=== PATIENT | female | born 1995 | race Caucasian/White ===

== ENCOUNTER 2019-06-10 10:26 | Emergency (ER) | payer OTHER ==
[~2019-06-10] VITALS: Ht 175.3 cm; Wt 65.8 kg
--- NOTE | 2019-06-10 10:30 | NUR ---
BIB [facility] FOR OTB. PATIENT C/O DIFFICULTY SWALLOWING AND SOB x TODAY. TO ER BED 11, HOOKED TO MONITOR, AWAITING MD MATIAS
--- NOTE | 2019-06-10 10:35 | NUR ---
DR JONES AT BEDSIDE FOR EVAL
--- NOTE | 2019-06-10 11:05 | NUR ---
URINE SAMPLE SENT TO LAB
--- NOTE | 2019-06-10 12:40 | NUR ---
Patient discharged in custody of [employer] in stable condition. Written and verbal after care instructions given. Patientand [employer] verbalizes understanding of instruction.
[2019-06-10 12:44] VITALS: BP 116/78
== END 2019-06-10 12:44 ==
LOC: ER 10:36
DX: J20.9 Acute bronchitis, unspecified (principal); F19.10 Other psychoactive substance abuse, uncomplicated
CPT/HCPCS: 71045-TC; 84703-TC